=== PATIENT | female | born 1990 | race Caucasian/White ===

== ENCOUNTER 2017-04-30 16:45 | Emergency (ER) | payer SELFPAY ==
[2017-04-30 16:53] VITALS: TEMP 98.2
[2017-04-30] MEDS ORDERED: NS 1,000 ML IV ONE ×2 (17:26→19:28)
[2017-04-30] MEDS ORDERED: fentaNYL 100 MCG/2 ML INJ IVP ONE (17:26)
[2017-04-30] MEDS ORDERED: ONDANSETRON 4 MG/2 ML VIAL IVP ONE (17:26)
--- NOTE | 2017-04-30 17:30 | EDPHY ---
H & P Time Seen by Provider: 04/30/17 17:06 HPI/ROS: CHIEF COMPLAINT: Headache HISTORY OF PRESENT ILLNESS: 26-year-old female presents to the emergency department with abrupt onset of a headache woke up out of her sleep at 4:00 a.m. 2 days ago. Patient describes her headache as severe. She has mild nasal congestion and occasional cough. She has diffuse joint pain as well. The patient last week had what she thought was perhaps norovirus and had multiple episodes of vomiting and diarrhea which has now since resolved. She does no longer feels nauseous. The light does bother her eyes. She had meningitis 12 years ago when she was in college. Patient denies any reported trauma. No known ill contacts. She did not receive a flu shot this year. No other recent travel. Last menstrual period was April 13 and she denies . REVIEW OF SYSTEMS: Constitutional: Fever of 100.8 earlier today.. Eyes: No double or blurry vision. ENT: Nasal congestion, rhinorrhea. No sore throat. Respiratory: Cough, no shortness of breath. Cardiac: No chest pain. Gastrointestinal: No abdominal pain, vomiting or diarrhea. Genitourinary: No dysuria. Musculoskeletal: No neck or back pain. Skin: No rashes. Neurological: Severe headache as above. Past Medical/Surgical History: Meningitis 2004, multiple facial surgeries for cleft lip/palate Social History: Single and lives in [place] Smoking Status: Current every day smoker Physical Exam: General Appearance: Alert, no distress. Afebrile. Tearful. Nontoxic appearing. Eyes: Pupils equal and round. Extraocular motions are all intact. ENT: Mouth: Mucous membranes moist. Respiratory: No wheezing, rhonchi, or rales, lungs are clear to auscultation. Cardiovascular: Regular rate and rhythm. Gastrointestinal: Abdomen is soft and nontender, no masses, no rebound or guarding, bowel sounds normal. Neurological: Alert and oriented x 3, cranial nerves II through XII grossly intact Skin: Warm and dry, no rashes. Musculoskeletal: Nontender to palpate along the cervical, thoracic or lumbar spine. Neck is supple. Extremities: Full range of motion and no peripheral edema. Psychiatric: Patient is oriented X 3, there is no agitation. Constitutional: Initial Vital Signs Temperature (C) 36.8 C 04/30/17 16:49 Heart Rate 97 04/30/17 16:49 Respiratory Rate 20 04/30/17 16:49 Blood Pressure 93/70 L 04/30/17 16:49 O2 Sat (%) 93 04/30/17 16:49 O2 Delivery Mode Room Air Allergies/Adverse Reactions: No Known Allergies Allergy (Unverified 06/14/10 10:40) Home Medications: Medication Instructions Recorded NO HOME MEDS 06/14/10 Oseltamivir Phosphate [Tamiflu] 75 mg PO BID #10 cap 06/14/10 oxyCODONE/APAP 5/325 [Percocet 1 tab PO Q4-6PRN PRN #14 tab 06/14/10 5/325] Medical Decision Making ED Course/Re-evaluation: An IV was established the patient was given IV normal saline as well as IV fentanyl for her severe headache. She had already taken ibuprofen and Tylenol prior to arrival. Clinically the patient is nontoxic-appearing. Patient does have a history of meningitis. She is photophobic. She has a severe headache. I discussed the concerns about possible meningitis. I also discussed the concerns about possible influenza. Influenza a was positive. Patient received IV normal saline. Laboratory studies were unremarkable. Patient initially received 50 mcg of IV fentanyl. She was also given 30 mg IV Toradol, 1 g of Tylenol p.o.. She also received 0.5 mg of IV Dilaudid. Case was discussed with Dr. Carney, secondary supervising physician, who did not directly evaluate the patient but agrees with treatment plan. I discussed the pros and cons of performing lumbar puncture to evaluate for meningitis and the patient declined. I think this is reasonable. The patient is very fearful of having a lumbar puncture since she has had these in the past and had a traumatic experience. I also explained to the patient that she understands that we meningitis cannot be excluded without lumbar puncture. Patient verbalized understanding. She still does not want the lumbar puncture. I doubt this patient has subarachnoid hemorrhage. Differential Diagnosis: Headache including but not limited to subarachnoid hemorrhage, migraine headache , tension headache and infectious causes such as meningitis, pharyngitis and sinusitis. - Data Points Laboratory Results: Laboratory Results 04/30/17 17:13 04/30/17 17:13 04/30/17 04/30/17 04/30/17 17:50 17:13 17:13 WBC RBC Hgb Hct MCV MCH MCHC RDW Plt Count MPV Neut % (Auto) Lymph % (Auto) Burke % (Auto) Eos % (Auto) Baso % (Auto) Nucleat RBC Rel Count Absolute Neuts (auto) Absolute Lymphs (auto) Absolute Monos (auto) Absolute Eos (auto) Absolute Basos (auto) Absolute Nucleated RBC Immature Gran % Immature Gran # Sodium 138 mEq/L mEq/L (134-144) Potassium 4.5 mEq/L mEq/L (3.5-5.2) Chloride 101 mEq/L mEq/L (97-110) Carbon Dioxide 23 mEq/l mEq/l (22-31) Anion Gap 14 mEq/L mEq/L (8-16) BUN 7 mg/dL mg/dL (7-23) Creatinine 0.8 mg/dL mg/dL (0.6-1.0) Estimated GFR > 60 Glucose 90 mg/dL mg/dL (70-100) Calcium 9.3 mg/dL mg/dL (8.5-10.4) Beta HCG, Qual NEGATIVE Nasal Influenza A PCR FLU A DETECTED H (NEGATIVE) Nasal Influenza B PCR NEGATIVE FOR FLU B (NEGATIVE) 04/30/17 17:13 WBC 4.83 10^3/uL 10^3/uL (3.80-9.50) RBC 4.24 10^6/uL 10^6/uL (4.18-5.33) Hgb 13.2 g/dL g/dL (12.6-16.3) Hct 37.8 % L % (38.0-47.0) MCV 89.2 fL fL (81.5-99.8) MCH 31.1 pg pg (27.9-34.1) MCHC 34.9 g/dL g/dL (32.4-36.7) RDW 12.6 % % (11.5-15.2) Plt Count 228 10^3/uL 10^3/uL (150-400) MPV 9.3 fL fL (8.7-11.7) Neut % (Auto) 66.3 % % (39.3-74.2) Lymph % (Auto) 20.7 % % (15.0-45.0) Burke % (Auto) 11.6 % % (4.5-13.0) Eos % (Auto) 0.6 % % (0.6-7.6) Baso % (Auto) 0.2 % L % (0.3-1.7) Nucleat RBC Rel Count 0.0 % % (0.0-0.2) Absolute Neuts (auto) 3.20 10^3/uL 10^3/uL (1.70-6.50) Absolute Lymphs (auto) 1.00 10^3/uL 10^3/uL (1.00-3.00) Absolute Monos (auto) 0.56 10^3/uL 10^3/uL (0.30-0.80) Absolute Eos (auto) 0.03 10^3/uL 10^3/uL (0.03-0.40) Absolute Basos (auto) 0.01 10^3/uL L 10^3/uL (0.02-0.10) Absolute Nucleated RBC 0.00 10^3/uL 10^3/uL (0-0.01) Immature Gran % 0.6 % % (0.0-1.1) Immature Gran # 0.03 10^3/uL 10^3/uL (0.00-0.10) Sodium Potassium Chloride Carbon Dioxide Anion Gap BUN Creatinine Estimated GFR Glucose Calcium Beta HCG, Qual Nasal Influenza A PCR Nasal Influenza B PCR Medications Given: Discontinued Medications Acetaminophen (Tylenol) 1,000 mg PO EDNOW ONE Stop: 04/30/17 19:19 Last Admin: 04/30/17 19:29 Dose: 1,000 mg Fentanyl (Sublimaze) 50 mcg IVP EDNOW ONE Stop: 04/30/17 17:27 Last Admin: 04/30/17 17:43 Dose: 50 mcg Hydromorphone HCl (Dilaudid) 0.5 mg IVP EDNOW ONE Stop: 04/30/17 21:04 Last Admin: 04/30/17 21:06 Dose: 0.5 mg Sodium Chloride (Ns) 1,000 mls @ 0 mls/hr IV ONCE ONE PRN Reason: Wide Open Stop: 04/30/17 17:27 Last Admin: 04/30/17 17:43 Dose: 1,000 mls Sodium Chloride (Ns) 1,000 mls @ 0 mls/hr IV ONCE ONE PRN Reason: Wide Open Stop: 04/30/17 19:29 Last Admin: 04/30/17 19:32 Dose: 1,000 mls Ketorolac Tromethamine (Toradol) 30 mg IVP EDNOW ONE Stop: 04/30/17 19:19 Last Admin: 04/30/17 19:29 Dose: 30 mg Ondansetron HCl (Zofran) 4 mg IVP EDNOW ONE Stop: 04/30/17 17:27 Last Admin: 04/30/17 17:43 Dose: 4 mg Departure - Departure Disposition: Home, Routine, Self-Care Clinical Impression: Influenza A Condition: Good Instructions: Hydrocodone/Acetaminophen (By mouth), Influenza (ED) Additional Instructions: Adult Pain & Fever Control: We recommend Acetaminophen (Tylenol) and Ibuprofen (Motrin,Advil) for pain and fever control. When fever is high or pain severe, both drugs can be used at the same time, but at different intervals. Please note the time differences. Your dose is: Acetaminophen 1000mg every 4 to 6 hours Ibuprofen 600mg every 8 hours with food Note: do not take Acetaminophen with Hydrocodone (Vicodin, Lortab) or Oycodone (Percocet). These medications also contain Acetaminophen. No more than 3000mg of Acetaminophen should be taken in 24 hours (for an adult). Referrals: Diana Rodriguez DO [Doctor of Osteopathy] - 2-3 days, call for appt. (Primary care provider banquet set up person)
[2017-04-30 17:41] LABS: PLATELET COUNT 228 10^3/uL (150-400)
[2017-04-30] MEDS ORDERED: ACETAMINOPHEN 500 MG TAB PO ONE (19:18)
[2017-04-30] MEDS ORDERED: KETOROLAC 30 MG/1 ML SDV IVP ONE (19:18)
[2017-04-30] MEDS ORDERED: HYDROmorphONE/DILAUDID 1 MG/ML INJ IVP ONE (21:03)
[2017-04-30] MEDS ORDERED: HYDROCOD/APAP 5/325 PREPACK#6 BTL TAKEHOME ONE (21:55)
[2017-04-30 22:12] VITALS: BP 105/72; PULSE 88; RESP 16; O2SAT 93
== END 2017-04-30 22:20 | disposition home or self-care (01) ==
DX: J10.1 Influenza due to other identified influenza virus with other respiratory manifestations (principal); R19.7 Diarrhea, unspecified; F17.200 Nicotine dependence, unspecified, uncomplicated
CPT/HCPCS: 96374; J1170; J1885; J2405; J3010